=== PATIENT | female | born 1965 | race African-American/Black ===

== ENCOUNTER 2018-10-23 08:22 | Outpatient (CLI) | payer MEDICARE ==
--- NOTE | 2018-10-23 09:11 | MMO ---
Bilateral MAMMO Bilat Diag [facility]. CLINICAL HISTORY: Patient is 53 years old and is seen for diagnostic exam,non-bloody discharge and pain in the left breast at 2 o'clock. The patient has no family history of breast cancer. The patient has no personal history of cancer. VIEWS: The views performed were: bilateral craniocaudal with tomosynthesis; bilateral mediolateral oblique with tomosynthesis; bilateral mediolateral; and bilateral exaggerated craniocaudal. FILMS COMPARED: The present examination has been compared to prior imaging studies performed at [facility], [place] on 07/27/2015, 08/01/2016 and 10/23/2018. MAMMOGRAM FINDINGS: There are scattered fibroglandular densities. There are no mammographic or sonographic abnormalities to explain the patient's reported left breast pain and nipple discharge. The patient is referred back to her clinician. Negative imaging findings should not preclude further evaluation if clinical findings are suspicious. There are no suspicious masses, suspicious calcifications, or new areas of architectural distortion. IMPRESSION: THERE ARE NO MAMMOGRAPHIC ABNORMALITIES TO EXPLAIN THE PATIENT'S REPORTED LEFT BREAST PAIN AND NIPPLE DISCHARGE. THE PATIENT IS REFERRED BACK TO HER CLINICIAN. NEGATIVE IMAGING FINDINGS SHOULD NOT PRECLUDE FURTHER EVALUATION IF CLINICAL FINDINGS ARE SUSPICIOUS. A ROUTINE FOLLOW-UP MAMMOGRAM IN 1 YEAR IS RECOMMENDED. THE RESULTS OF THIS EXAM WERE SENT TO THE PATIENT. ACR BI-RADS Category 2 - Benign finding MAMMOGRAPHY NOTE: 1. A negative mammogram report should not delay a biopsy if a dominant of clinically suspicious mass is present. 2. Approximately 10% to 15% of breast cancers are not detected by mammography. 3. Adenosis and dense breasts may obscure an underlying neoplasm.
--- NOTE | 2018-10-23 10:10 | ULT ---
LIMITED LEFT BREAST ULTRASUOND: DATE: 10/23/2018. PROVIDED CLINICAL HISTORY: Focal left breast pain and nipple discharge. FINDINGS: Limited sonographic interrogation of the retroareolar region of the left breast demonstrates a normal appearance to the breast parenchyma. Limited sonographic interrogation of the region of patient louie n at the 1 o'clock position demonstrates no concerning findings. A small simple cyst is seen measuri ng about 4 mm. IMPRESSION: BIRADS category 2 - benign findings. No mammographic or sonographic abnormalities are evident to exp jb the patient's breast pain and discharge. Negative or benign imaging findings should not preclud e further evaluation of a clinically suspicious finding. The patient is referred back to her clinici korey. POS: OFF
== END 2018-10-23 08:23 | disposition home or self-care (01) ==
LOC: BICMAMMO 08:22
PROVIDERS: ATTEND Family Medicine
DX: N64.52 Nipple discharge (principal)
CPT/HCPCS: 76642; 77066; G0279

== ENCOUNTER 2024-08-04 09:41 | Outpatient (CLI) | payer BC | END 2024-08-04 09:42 | disposition home or self-care (01) | LOC: BICMAMMO 09:41 | PROVIDERS: ATTEND Family Medicine | DX: Z12.31 Encounter for screening mammogram for malignant neoplasm of breast (principal) | CPT/HCPCS: 77063; 77067 ==

== ENCOUNTER 2024-08-19 14:05 | Outpatient (CLI) | payer BC | END 2024-08-19 14:06 | disposition home or self-care (01) | LOC: BICMRI 14:05 | PROVIDERS: ATTEND Family Medicine | DX: M87.059 Idiopathic aseptic necrosis of unspecified femur (principal); M16.11 Unilateral primary osteoarthritis, right hip; R60.0 Localized edema ==